=== PATIENT | male | born 1950 | race Caucasian/White ===

== ENCOUNTER 2024-09-30 08:56 | Day surgery (SDC) | payer OTHER ==
[~2024-09-30] VITALS: Ht 177.8 cm; Wt 97.8 kg
[2024-09-30] VITALS (19 sets, daily range): BP systolic 125–185; BP diastolic 67–115
[~2024-09-30 08:56] MED LIST: ALBU90I INH; ALLO300 PO; ALPR.5 PO; ASPI325EC; ASPI81EC PO; CALCAVITDA PO; CARV25 PO; CEPH500 PO; CLOP75 PO; COREG 20 MG; DIGO.25 PO; EZET10; FOLI1; FOLI400 PO; Flonase 0.05% N16 GM; GABA600 PO; HYDACE5; HYDACE5 PO; HYDR454TO; HYDROCORTISONE30 GM EXT; IPRA.03NI; Isosorbide Mono30 MG PO; LISI5 PO; LORA10ER PO; METO50ER; MULVITA PO; NITR.4SL SL; PIRO20 PO; PRAV20; PRAV20 PO; PRAV40 PO; RANO500T PO; [UNRECOGNIZED DRUG - CODE]
[2024-09-30] MEDS ORDERED: Vitamin D1000 UNI1 PO (09:24)
[2024-09-30] MEDS ORDERED: Verapamil HCL 2.5 MG/ML 2ML Injection ONE (10:04)
[2024-09-30] MEDS ORDERED: Heparin Sodium 1000 Units/ML 10ML MDV ONE ×4 (10:05→16:18)
[2024-09-30] MEDS ORDERED: NS 1,000 ML IV ONE ×3 (10:05→16:34)
[2024-09-30] MEDS ORDERED: NS 250 ML IV ONE ×2 (10:05→16:18)
[2024-09-30] MEDS ORDERED: Nitroglycerin 2 MG/20 ML BTL ONE (10:06)
[2024-09-30] MEDS ORDERED: Midazolam HCl 1MG / ML 2ML Vial ONE ×3 (10:13→12:47)
[2024-09-30] MEDS ORDERED: FentaNYL Citrate 50 MCG/ML 2 ML Injection ONE ×2 (10:13→11:41)
[2024-09-30] MEDS ORDERED: NS 500 ML IV ONE (12:20)
[2024-09-30] MEDS ORDERED: HydrALAZINE HCl 20 MG / ML 1ML Vial ONE (13:10)
--- NOTE | 2024-09-30 13:43 | NUR ---
PATIENT ARRIVED TO RECOVERY ROOM WITH HOB FLAT. RIGHT GROIN C/D/I SOFT/NONTENDER WITH ANGIOSEAL CLOSURE DEVICE IN PLACE. LEFT ULNAR TR BAND IN PLACE. PRESSURE DRESSING APPLIED PROXIMAL TO TR BAND DUE TO SMALL HEMATOMA. WILL CONTINUE TO MONITOR. VSS ON RA.
--- NOTE | 2024-09-30 14:00 | NUR ---
HOB FLAT. PATIENT TOLERATING PO INTAKE WELL. 1 CC OF AIR REMOVED FROM TR BAND DUE TO TINGLING IN FINGERS, WILL CONTINUE TO MONITOR. RIGHT GROIN SITE C/T/ SOFT/NONTENDER, NO EVIDENCE OF BLEEDING. PATIENT DENYING ANY PAIN. VSS ON RA. PATIENT CONVERSING APPROPRIATELY. SPOUSE PRESENT AT BEDSIDE.
--- NOTE | 2024-09-30 14:15 | NUR ---
HOB ELEVATED 30 DEGREES. RIGHT GROIN SITE C/D/I SOFT/NONTENDER, WILL CONTINUE TO MONITOR. VSS ON RA.
--- NOTE | 2024-09-30 14:30 | NUR ---
RIGHT GROIN OOZING NOTED, NO CHANGES TO VS. MANUAL PRESSURE, HEMOSTASIS ACHIEVED AFTER 15 MINUTES. DRESSING CHANGE PERFORMED. VSS ON RA. PATIENT CONVERSING APPROPRIATELY. NO HEMATOMA NOTED.
--- NOTE | 2024-09-30 15:05 | NUR ---
HOB ELEVATED 30 DEGREES. RIGHT GROIN SITE C/D/I SOFT/NONTENDER, NO EVIDENCE OF BLEEDING. VSS ON RA. PATIENT TOLERATING PO INTAKE WELL. SPOUSE PRESENT AT BEDSIDE. 1 CC OF AIR REMOVED FROM TR BAND, NO EVIDNECE OF BLEEDING. PATIENT DENYING ANY PAIN.
--- NOTE | 2024-09-30 15:38 | NUR ---
ALL AIR REMVOED FROM LEFT TR BAND. SITE C/D/I SOFT/NONTENDER, NO EVIDENCE OF BLEEDING. PATIENT CONVERSING APPROPRIATELY. PATIENT TOLERATING PO INTAKE WELL. HOB AT 30 DEGREES. RIGHT GROIN SITE C/D/I SOFT/TENDER, WILL CONTINUE TO MONITOR. VSS ON RA.
--- NOTE | 2024-09-30 16:00 | NUR ---
MD PRESENT AT BEDSIDE. PATIENT WITH 7 SECOND PAUSE. EKG PERFORMED. PATIENT AWAKE AND ALERT NOW.
[2024-09-30] MEDS ORDERED: Ondansetron HCl 2 MG / ML 2ML Vial ONE ×2 (16:14→17:05)
[2024-09-30 17:33] LABS: BASOPHILS ABSOLUTE AUTO 0.03 K/mm3 (0.00-0.23); BASOPHILS PERCENT AUTO 0 % (0-2); EOSINOPHILS ABSOLUTE AUTO 0.41 K/mm3 (0.00-0.68); EOSINOPHILS PERCENT AUTO 4 % (0-6); Hematocrit 33.4 % (37.0-53.0); Hemoglobin 11.7 g/dL (13.5-17.5); IMMATURE GRAN ABSOLUTE AUTO 0.05 K/mm3 (0.00-0.10); IMMATURE GRAN PERCENT AUTO 0 % (0-1); LYMPHOCYTES ABSOLUTE AUTO 2.21 K/mm3 (0.84-5.20); LYMPHOCYTES PERCENT AUTO 19 % (21-46); MONOCYTES ABSOLUTE AUTO 0.87 K/mm3 (0.16-1.47); MONOCYTES PERCENT AUTO 8 % (4-13); Mean Corpuscular HGB Conc 35.0 g/dL (31.5-36.5); Mean Corpuscular Volume 100 fL (80-100); NEUTROPHILS ABSOLUTE AUTO 8.07 K/mm3 (1.96-9.15); NEUTROPHILS PERCENT AUTO 69 % (41-73); NRBC ABSOLUTE 0.00 K/mm3 (0.00-0.02); NRBC Auto 0.0 /100 WBC (0.0-0.2); Platelet Count 196 K/mm3 (150-400); RDW Coefficient Variation 13.0 % (11.7-14.2); RDW Standard Deviation 47.4 fL (35.1-46.3)
[2024-09-30] MEDS ORDERED: HydrALAZINE HCl 20 MG / ML 1ML Vial IV ONE (17:55)
--- NOTE | 2024-09-30 17:56 | NUR ---
BEDSIDE REPORT GIVEN TO ANDREZ TAYLOR. TEMPORARY PACEMAKER SITE CHECKED. ULNAR SITE REVIEWED, AND RIGHT GROIN SITE REVIEWED. VSS ON RA.
[2024-09-30 18:05] LABS: Anion Gap 7.0 mmol/L (3-11); Blood Urea Nitrogen 16.0 mg/dL (8-24); CO2, Blood 25.0 mmol/L (21-32); Calcium, Blood 7.9 mg/dL (8.5-10.1); Chloride, Blood 110.0 mmol/L (98-108); Creatinine, Blood 1.12 mg/dL (0.60-1.20); Glucose, Blood 107.0 mg/dL (70-99); Potassium, Blood 3.5 mmol/L (3.5-5.5); Sodium, Blood 138.0 mmol/L (136-145)
== END 2024-09-30 23:00 | disposition home or self-care (01) ==
LOC: MHTC 08:56
PROVIDERS: Student in an Organized Health Care Education/Training Program
DX: I25.10 Atherosclerotic heart disease of native coronary artery without angina pectoris (principal); I13.0 Hypertensive heart and chronic kidney disease with heart failure and stage 1 through stage 4 chronic kidney disease, or unspecified chronic kidney disease; E11.22 Type 2 diabetes mellitus with diabetic chronic kidney disease; I50.30 Unspecified diastolic (congestive) heart failure; N18.30 Chronic kidney disease, stage 3 unspecified; E78.5 Hyperlipidemia, unspecified; R94.39 Abnormal result of other cardiovascular function study; R35.0 Frequency of micturition; E66.9 Obesity, unspecified; Z95.1 Presence of aortocoronary bypass graft; Z88.8 Allergy status to other drugs, medicaments and biological substances; Z91.048 Other nonmedicinal substance allergy status; Z79.899 Other long term (current) drug therapy
CPT/HCPCS: 33210; 76937; 80048; 85025; 85347; 92920; 93005; 93010; 93455; 99152; 99153; A9270; C1725; C1769; C1887; C1894; J0360; J1644; J2250; J2405; J3010; J7030; J7040; J7050; Q9967

== ENCOUNTER 2024-09-30 17:55 | Inpatient (IN) | payer OTHER ==
[2024-09-30] VITALS (23 sets, daily range): BP systolic 108–168; BP diastolic 66–129
[~2024-09-30] VITALS: Ht 177.8 cm; Wt 97.0 kg
[~2024-09-30 17:55] MED LIST changes: +Vitamin D1000 UNI1 PO
[2024-09-30] MEDS ORDERED: HydrALAZINE HCl 20 MG / ML 1ML Vial IV ONE (18:10)
[2024-09-30] MEDS ORDERED: NiCARdipine HCL 500 MCG/5 ML SYR IV SCH (18:37)
[2024-09-30] MEDS ORDERED: NiCARdipine HCL 50 MG in NS 250 ML IV SCH (18:45)
[2024-09-30] MEDS ORDERED: Potassium Chloride 10 Meq Tablet SA PO ONE (19:09)
--- NOTE | 2024-09-30 19:24 | NUR ---
SHIFT SUMMARY: PATIENT ARRIVED TO UNIT AT 17:25. NEURO: PATIENT ALERT AND ORIENTED X4. EQUAL MOVEMENT NOTED IN ALL 4 EXTREMITIES. REPORTS NEUROPATHY IN BLE AT BASELINE. CARDIAC: TEMPORARY TRANSVENOUS PACEMAKER IN PLACE. HR IN THE 70S-90S. PACED AT TIMES. HR SET TO 74 BPM. STRONG PULSES IN WRISTS AND PEDIS LOCATIONS. ELEVATED BPS NOTED, HIGH 180S. DR. MILLS AND DR. VARGAS AWARE. NEW ORDERS MEDICATED ONCE WITH HYDRALAZINE. THIS BROUGHT A TEMPORARY DECREASE OF SBP TO THE 140S. NICARDIPINE GTT TO BE STARTED ONCE IT ARRIVES FROM THE PHARMACY. ANGIO SITES (LEFT WRIST AND RIGHT GROIN) REMAINED UNCHANGED SINCE ARRIVAL TO THE ICU. THERE IS BRUISING AND FIRMNESS IN THE LEFT FOREARM. A SMALL STABLE HEMATOMOA CAN BE FELT ON THE RIGHT GOING. BLOODY DRAINAGE ON DRESSINGS REMAINED UNCHANGED. PATIENT REPORTED ONE SITUATION OF CHEST HEAVINESS. PATIENT REPORTS THIS HAS BEEN HAPPENING AT HOME. NO NOTICABLE CHANGES TO HEART RATE OR RHYTHM. NO CHANGES TO BP. PATIENT PRACTICED DEEP BREATHING WHICH ALLEVIATED SOME OF THIS DISCOMFORT. DR. VARGAS DISCUSSED WITH PATIENT WHEN AT BEDSIDE. RESPIRATORY: PATIENT STABLE ON ROOM AIR WITH SPO2 >94%. PATIENT DENIES SHORTNESS OF BREATH OR DIFFICULTY BREATHING. GRANDDAUGHTER WILL BRING THE PATIENT'S HOME CPAP TONIGHT. GI/: PATIENT REPORTS HIS STOMACH IS FEELING BETTER. DENIED NEED FOR ANTI-EMETICS. ABLE TO TOLERATE SMALL SIPS OF WATER. PATIENT REPORTS SOME RETENTION AT HOME. HE REQUIRES TIME AND MULTIPLE ATTEMPTS AT VOIDING. ABLE TO VOID THIS EVENING. PSYCHSOCIAL: PATIENT IS CALM AND COOPERATIVE. FOLLOWING POST-ANGIO GUIDELINES. PATIENT HAS A LARGE AND SUPPORTIVE FAMILY.
[2024-09-30] MEDS ORDERED: Ondansetron HCl 2 MG / ML 2ML Vial IV PRN (21:45)
[2024-09-30] MEDS ORDERED: Prochlorperazine Edisylate 10 mg Vial IV PRN (23:45)
[2024-10-01] VITALS (63 sets, daily range): BP systolic 109–156; BP diastolic 61–92
[2024-10-01 04:23] LABS: BASOPHILS ABSOLUTE AUTO 0.01 K/mm3 (0.00-0.23); BASOPHILS PERCENT AUTO 0 % (0-2); EOSINOPHILS ABSOLUTE AUTO 0.06 K/mm3 (0.00-0.68); EOSINOPHILS PERCENT AUTO 1 % (0-6); Hematocrit 32.6 % (37.0-53.0); Hemoglobin 11.3 g/dL (13.5-17.5); IMMATURE GRAN ABSOLUTE AUTO 0.02 K/mm3 (0.00-0.10); IMMATURE GRAN PERCENT AUTO 0 % (0-1); LYMPHOCYTES ABSOLUTE AUTO 1.75 K/mm3 (0.84-5.20); LYMPHOCYTES PERCENT AUTO 19 % (21-46); MONOCYTES ABSOLUTE AUTO 0.85 K/mm3 (0.16-1.47); MONOCYTES PERCENT AUTO 9 % (4-13); Mean Corpuscular HGB Conc 34.7 g/dL (31.5-36.5); Mean Corpuscular Volume 100 fL (80-100); NEUTROPHILS ABSOLUTE AUTO 6.79 K/mm3 (1.96-9.15); NEUTROPHILS PERCENT AUTO 72 % (41-73); NRBC ABSOLUTE 0.00 K/mm3 (0.00-0.02); NRBC Auto 0.0 /100 WBC (0.0-0.2); Platelet Count 182 K/mm3 (150-400); RDW Coefficient Variation 13.2 % (11.7-14.2); RDW Standard Deviation 47.9 fL (35.1-46.3)
--- NOTE | 2024-10-01 06:28 | NUR ---
END OF SHIFT SUMMARY Pt had two episodes of vommiting around 2100 after medications. PRN given per MAR to improvement. Cardene at 5 mg/hr and systolic BP less than 140 . at bedside since 619. VSS , pacer spikes rarely noted , hematoma on left wrist and right thight remain unchange from previous night.
[2024-10-01 07:09] LABS: Alanine Aminotransfer (ALT/SGP 25.0 U/L (12-78); Albumin, Blood 3.6 g/dL (3.4-5.0); Albumin/Globulin Ratio 1.3 (0.8-1.8); Anion Gap 9.0 mmol/L (3-11); Aspartate Aminotrans (AST/SGOT 35.0 U/L (12-37); Bilirubin, Total 1.2 mg/dL (0.1-1.0); Blood Urea Nitrogen 17.0 mg/dL (8-24); CO2, Blood 23.0 mmol/L (21-32); Calcium, Blood 8.2 mg/dL (8.5-10.1); Chloride, Blood 111.0 mmol/L (98-108); Creatinine, Blood 1.23 mg/dL (0.60-1.20); Globulin, Blood 2.7 g/dL (2.2-4.0); Glucose, Blood 118.0 mg/dL (70-99); Magnesium, Blood 2.3 mg/dL (1.6-2.4); Potassium, Blood 4.3 mmol/L (3.5-5.5); Sodium, Blood 139.0 mmol/L (136-145); Total Protein, Blood 6.3 g/dL (6.4-8.2)
[2024-10-01] MEDS ORDERED: Cholecalciferol 1000 Unit Tablet (=25MCG) PO SCH (09:00)
--- NOTE | 2024-10-01 10:53 | NUR ---
Pt. is awake in bed and welcomes my visit. Pt. is pleasant. Spouse is at bedside. This billboard erector knows the Pts. daughter from the community. Facilitate a life review and listen with empathy and interest. Considered matters of family, agnieszka, and belief. Pt. displayed evidence of clarity of mind, and was fully engaged. Pt. verbalized an expectation to be transferred to another hospital who has cardiac specialists. Prayed with the Pt. Pt. verbalized gratitude for the spiritual care visit.
--- NOTE | 2024-10-01 11:20 | NUR ---
PT REPORTS FEELING "HEAVYNESS" ON CHEST. STATES IT RECEDES FOR A WHILE AFTER SEVERAL DEEP BREATHS. NO OTHER SYMPTOMS OR RHYTHM CHANGES NOTED.
--- NOTE | 2024-10-01 16:28 | NUR ---
Transfer. Pt transferred to [facility] via [facility] at approximately 1600. Report given to public health nutritionist transporting patient and to RN at [facility]. Nicardepine infusing at 5 mg/hr and LR at 125 ml/hr. VS stable. All personal belongings sent with patient and . updated with new room number and visiting hours. No acute events prior to transport. Pacemaker secure, settings unchanged. See chart for further details.
[2024-10-01] MEDS ORDERED: Isosorbide Mononitrate 30 MG TABCR PO SCH (21:00)
== END 2024-10-01 16:05 | disposition short-term general hospital (02) | DRG 315 ==
LOC: ICUE 17:55
PROVIDERS: ADMIT Internal Medicine
PROC: 5A1223Z Performance of Cardiac Pacing, Continuous (ICD-10-PCS; principal; 2024-10-01)
DX: I97.120 Postprocedural cardiac arrest following cardiac surgery (principal); I13.0 Hypertensive heart and chronic kidney disease with heart failure and stage 1 through stage 4 chronic kidney disease, or unspecified chronic kidney disease; I25.810 Atherosclerosis of coronary artery bypass graft(s) without angina pectoris; I50.32 Chronic diastolic (congestive) heart failure; I25.10 Atherosclerotic heart disease of native coronary artery without angina pectoris; G47.33 Obstructive sleep apnea (adult) (pediatric); D63.1 Anemia in chronic kidney disease; E78.5 Hyperlipidemia, unspecified; I35.0 Nonrheumatic aortic (valve) stenosis; N18.30 Chronic kidney disease, stage 3 unspecified; E11.22 Type 2 diabetes mellitus with diabetic chronic kidney disease; E66.9 Obesity, unspecified; Y83.8 Other surgical procedures as the cause of abnormal reaction of the patient, or of later complication, without mention of misadventure at the time of the procedure; Z88.8 Allergy status to other drugs, medicaments and biological substances; Z68.28 Body mass index [BMI] 28.0-28.9, adult
CPT/HCPCS: 36415; 80053; 83735; 85025; 93005; 93010; 93306; 96374; 96375; 96376; A9270; G0378; J0360; J0780; J2405; J7050; J7120